=== PATIENT | male | born 1995 | race Caucasian/White ===

== ENCOUNTER → 2019-08-14 | Outpatient (CLI) | payer BC ==
[~2019-08-14] VITALS: Ht 167.6 cm; Wt 90.9 kg
[~2019-08-14] MED LIST: ACETAMINOPHEN TAB 650MG DOSE (2X325MG) PO ONE; ALBUTEROL SULFATE (2.5MG/0.5ML) NEB INH PRN; EPINEPHrine (1MG/ML) IV IM PRN; USTEKINUMAB 520 MG in NS 146 ML IV ONE; diphenhydrAMINE (50MG/ML) IV IV PRN; diphenhydrAMINE 50MG/ML VIAL (J1200) IV ONE; methylPREDNISolone (125 MG/2 ML) IV IV ONE
[2019-08-14 14:20] VITALS: BP 140/71
[2019-08-14 15:15] VITALS: BP 130/89
[2019-08-14 17:20] VITALS: BP 131/73
== END ==
LOC: M INFU 14:14
PROVIDERS: ATTEND Student in an Organized Health Care Education/Training Program
DX: K50.00 Crohn's disease of small intestine without complications (principal)
CPT/HCPCS: 96365; 96366; J3358